=== PATIENT | male | born 1945 | race Caucasian/White ===

== ENCOUNTER 2022-05-18 09:34 | Day surgery (SDC) | payer MEDICARE ==
[~2022-05-18] VITALS: Ht 185.4 cm; Wt 122.7 kg
[~2022-05-18 09:34] MED LIST: ASPI81TA52 PO; CETI-194 PO; CHOL10002 PO; CYAN100T39 PO; HYDR25TA4 PO; LOSA100T57 PO
[2022-05-18 09:50] VITALS: BP 150/96
[2022-05-18] MEDS ORDERED: OMEG1CAP13 PO (09:50)
[2022-05-18] MEDS ORDERED: AMLO2.5T2 PO (09:50)
[2022-05-18] MEDS ORDERED: CHOL500049 PO (09:52)
[2022-05-18] MEDS ORDERED: FLUT16SP10 (09:53)
[2022-05-18] MEDS ORDERED: CYAN250010 PO (09:53)
[2022-05-18] MEDS ORDERED: PROP10DR4 OP (09:54)
[2022-05-18] MEDS ORDERED: CICL15CR13 TOP (09:54)
[2022-05-18] MEDS ORDERED: CIPR-259 PO (09:55)
[2022-05-18] MEDS ORDERED: VARD20TA39 (09:56)
[2022-05-18] MEDS ORDERED: fentaNYL/PF 50MCG/1 ML 2ML syringe ONE (10:05)
[2022-05-18] MEDS ORDERED: MIDAZolam 1 MG/ML 5ML VIAL ONE (10:05)
[2022-05-18 11:27] VITALS: BP 149/98
[2022-05-18 11:37] VITALS: BP 132/92
[2022-05-18 11:47] VITALS: BP 145/90
[2022-05-18 11:57] VITALS: BP 144/65
== END 2022-05-18 12:10 | disposition home or self-care (01) ==
LOC: GI LAB 09:34
PROVIDERS: ATTEND Internal Medicine Gastroenterology
DX: D12.3 Benign neoplasm of transverse colon (principal); K57.30 Diverticulosis of large intestine without perforation or abscess without bleeding; K64.8 Other hemorrhoids
CPT/HCPCS: 45385; G0500; J2250; J3010; J7030; Z7512; 45380; 88305; 99152; 99153; A4620